=== PATIENT | female | born 1945 | race Caucasian/White ===

== ENCOUNTER 2019-11-22 18:03 | Emergency (ER) | payer MEDICARE, BC ==
[~2019-11-22] VITALS: Ht 165.1 cm; Wt 74.8 kg
[2019-11-22] MEDS ORDERED: GABA-532 PO (18:19)
[2019-11-22] MEDS ORDERED: MELA5TAB PO (18:19)
[2019-11-22] MEDS ORDERED: DULO60CA45 PO (18:19)
[2019-11-22] MEDS ORDERED: LORAZEPAM 0.5 MG TABLET PO ONE (18:30)
[2019-11-22] MEDS ORDERED: DICYCLOMINE HCL LIQ 10 MG/5 ML UDC PO ONE (18:30)
[2019-11-22] MEDS ORDERED: MAG HYDROX/AL HYDROX/SIMETH 30 ML LIQUID UDC PO ONE (18:30)
[2019-11-22] MEDS ORDERED: ONDANSETRON ODT 4 MG TAB.RAPDIS SL ONE ×2 (18:30→19:45)
[2019-11-22] MEDS ORDERED: ONDANSETRON ODT 4 MG TAB.RAPDIS ONE ×2 (18:33→20:03)
[2019-11-22] MEDS ORDERED: DICYCLOMINE HCL LIQ 10 MG/5 ML UDC ONE (18:34)
[2019-11-22] MEDS ORDERED: LORAZEPAM 1 MG TABLET ONE (18:34)
[2019-11-22] MEDS ORDERED: MAG HYDROX/AL HYDROX/SIMETH 30 ML LIQUID UDC ONE (18:34)
[2019-11-22 20:03] LABS: BASOPHILS % (AUTO) 0.4 % (0.0-2.0); EOSINOPHILS # (AUTO) 0.1 K/uL (0.0-0.7); HEMATOCRIT 27.7 % (31.2-41.9); HEMOGLOBIN 8.7 g/dL (10.9-14.3); LYMPHOCYTES # (AUTO) 1.3 K/uL (20.0-40.0); LYMPHOCYTES % (AUTO) 16.3 % (20.5-51.5); MEAN CORPUSCULAR HEMOGLOBIN 24.5 uug (24.7-32.8); MEAN CORPUSCULAR HGB CONC 32 g/dL (32.3-35.6); MEAN CORPUSCULAR VOLUME 77.9 fL (75.5-95.3); MONOCYTES # (AUTO) 0.6 K/uL (2.0-10.0); MONOCYTES % (AUTO) 7.1 % (0.0-11.0); NEUTROPHILS # (AUTO) 5.9 K/uL (1.8-8.9); NEUTROPHILS % (AUTO) 75.2 % (38.5-71.5); PLATELET COUNT (AUTO) 320 K/uL (179-408); RED BLOOD CELL COUNT(AUTO) 3.56 MIL/uL (3.63-4.92); WHITE BLOOD COUNT (AUTO) 7.8 K/uL (3.8-11.8)
[2019-11-22 20:06] LABS: POTASSIUM 4.1 mmol/L (3.5-5.1)
[2019-11-22 20:12] LABS: BILIRUBIN,DIRECT 0.1 mg/dL (0.0-0.2); BILIRUBIN,TOTAL 0.3 mg/dL (0.2-1.0); TOTAL PROTEIN, SERUM 7.6 g/dL (6.4-8.2)
[2019-11-22] MEDS ORDERED: ASPIRIN 325 MG TABLET PO ONE (20:30)
[2019-11-22] MEDS ORDERED: ASPIRIN 325 MG TABLET ONE (20:33)
[2019-11-22 20:41] VITALS: BP 144/98
[2019-11-22] MEDS ORDERED: NITROGLYCERIN 0.4 MG/TAB BOTTLE SL ONE ×2 (20:43→21:15)
[2019-11-22] MEDS ORDERED: IOHEXOL 350 100 ML INFUS..BTL ONE (21:11)
[2019-11-22] MEDS ORDERED: SWABABLE VALVE TRANSFER SET EA MC ONE (21:11)
[2019-11-22] MEDS ORDERED: IV NORMAL SALINE 250 ML IV ONE (21:11)
[2019-11-22 21:41] LABS: ETHANOL < 3 MG/DL (0-0)
[2019-11-22] MEDS ORDERED: MORPHINE SULFATE 2 MG/1 ML DISP.SYRIN IV ONE (23:15)
[2019-11-22] MEDS ORDERED: MORPHINE SULFATE 2 MG/1 ML DISP.SYRIN ONE (23:22)
[2019-11-23 02:07] LABS: ABG BASE EXCESS -3.8 mmol/L; ABG HCO3 18.6 mmol/L; ABG PCO2 25.5 mmHg (35.0-45.0); ABG PH 7.481 (7.350-7.450); ABG PO2 148.1 mmHg (75.0-100.0); ABG SITE LEFT RADIAL; ABG TOTAL HEMOGLOBIN 9.7 G/dL (12.0-16.0); COHb 0.6 % (0.5-1.5); MetHb 0.2 % (0.0-1.5); O2Hb 98.5 % (94.0-97.0)
[2019-11-23] MEDS ORDERED: Medication Not On Formulary EA (Melatonin 5 MG) PO PRN (02:15)
[2019-11-23] MEDS ORDERED: ZIPRASIDONE MESYLATE 20 MG VIAL IM ONE ×2 (02:24→02:30)
[2019-11-23 03:00] LABS: FERRITIN 17 ng/mL (8-252); LACTATE DEHYDROGENASE 812 U/L (81-234)
[2019-11-23] MEDS ORDERED: IV NS 1000 ML 1,000 ML IV ONE (07:30)
[2019-11-23] MEDS ORDERED: GABAPENTIN 100 MG CAPSULE PO SCH (09:00)
[2019-11-23] MEDS ORDERED: DULOXETINE 60 MG CAPSULE.DR PO SCH (09:00)
== END 2019-11-23 07:29 | disposition short-term general hospital (02) ==
LOC: ER 18:07
DX: I63.9 Cerebral infarction, unspecified (principal); R41.89 Other symptoms and signs involving cognitive functions and awareness; R29.702 NIHSS score 2; I21.4 Non-ST elevation (NSTEMI) myocardial infarction; M54.9 Dorsalgia, unspecified; R15.9 Full incontinence of feces; R41.0 Disorientation, unspecified; R73.9 Hyperglycemia, unspecified; S00.93XA Contusion of unspecified part of head, initial encounter; S40.021A Contusion of right upper arm, initial encounter; W19.XXXA Unspecified fall, initial encounter; Y92.89 Other specified places as the place of occurrence of the external cause; K44.9 Diaphragmatic hernia without obstruction or gangrene; F41.9 Anxiety disorder, unspecified; Z79.899 Other long term (current) drug therapy
CPT/HCPCS: 36415; 36600; 70030-TC; 70450; 70486; 71045; 72072; 72125; 73080; 83605; 83615; 85025; 85730; 86140; 87040; 87400; 93005; A4663; G0480; J2270; J3486; J7030; J7050; Q0162; Q9967; U0003-CS